=== PATIENT | female | born 1980 | race Caucasian/White ===

== ENCOUNTER 2016-10-21 10:41 | Outpatient (CLI) | payer OTHER ==
--- NOTE | 2016-10-21 11:23 | DIAGNOSTIC IMAGING REPORT ---
PROCEDURE: US SOFT TISSUE THYR/NECK/HEAD INDICATION: FATIGUE, NECK PAIN, MS TECHNIQUE: Hernandez scale and color Doppler sonographic images of the thyroid gland were obtained. COMPARISON: None. FINDINGS: The right thyroid lobe measures 6.1 x 1.3 x 1.6 cm The left thyroid lobe measures 5.0 x 1.1 x 1.7 cm In the inferior pole of the right lobe there is a vascular of cystic nodule that measures 9 x 8 x 6 mm. In the left lobe there are tiny colloid cysts, the largest measures 3.3 mm. No suspicious calcification. No significant adenopathy adjacent to the gland. IMPRESSION: 1. Vascular cystic nodule in the inferior pole right lobe measuring 9 mm. 2. Tiny colloid cysts in the left lobe, largest measuring 3.3 mm
== END 2016-10-21 23:00 | disposition home or self-care (01) ==
LOC: US SRH 10:41
DX: E04.1 Nontoxic single thyroid nodule (principal)